=== PATIENT | male | born 1950 | race Caucasian/White ===

== ENCOUNTER → 2024-12-29 11:06 | Outpatient (REF) | payer MEDICARE, OTHER, SELFPAY | LOC: HWRCS 11:06 | PROVIDERS: ATTENDING PHYSICIAN Internal Medicine Cardiovascular Disease; FAMILY PHYSICIAN Internal Medicine | DX: I25.10 Atherosclerotic heart disease of native coronary artery without angina pectoris (principal); I77.89 Other specified disorders of arteries and arterioles | CPT/HCPCS: 93306 ==

== ENCOUNTER → 2025-06-22 12:22 | Outpatient (REF) | payer MEDICARE, OTHER, SELFPAY ==
[2025-06-22 16:14] LABS: HDL Cholesterol 57 mg/dl; LDL Cholesterol, Calculated 58 mg/dl; Very Low Density Lipoprotein 23 mg/dl (0-30)
== END ==
LOC: HWRCS 12:22
PROVIDERS: ATTENDING PHYSICIAN Internal Medicine Cardiovascular Disease; FAMILY PHYSICIAN Internal Medicine
DX: I10 Essential (primary) hypertension (principal); I77.89 Other specified disorders of arteries and arterioles; I25.10 Atherosclerotic heart disease of native coronary artery without angina pectoris
CPT/HCPCS: 36415; 80061; 93306